=== PATIENT | male | born 1970 | race African-American/Black ===

== ENCOUNTER 2021-04-01 10:15 | Inpatient (IN) | payer OTHER ==
[2021-04-01 11:30] VITALS: BMI 23.3
[2021-04-01] MEDS ORDERED: METHOCARBAMOL 500 MG TABLET PO PRN (12:42)
[2021-04-01] MEDS ORDERED: MAGNESIUM HYDROX 2400MG/30ML ORAL SUSPENSION 30 ML CUP PO PRN (12:42)
[2021-04-01] MEDS ORDERED: ACETAMINOPHEN 325 MG TABLET (FP) PO PRN ×2 (12:42)
[2021-04-01] MEDS ORDERED: NICOTINE 10 MG CARTRIDGE (INHALER) IH PRN (12:42)
[2021-04-01] MEDS ORDERED: IBUPROFEN 400 MG TABLET (FP) PO PRN (12:42)
[2021-04-01] MEDS ORDERED: MAGNESIUM CITRATE 300 ML BOTTLE PO PRN (12:42)
[2021-04-01] MEDS ORDERED: ONDANSETRON *ODT* 4 MG TABLET SL PRN (12:42)
[2021-04-01] MEDS ORDERED: BISMUTH SUBSALICYLATE 524 MG/30 ML PO PRN (12:42)
[2021-04-01] MEDS ORDERED: MAG HYDROX/AL HYDROX/SIMETH 30 ML UNIT-DOSE CUP PO PRN (12:42)
[2021-04-01] MEDS ORDERED: MENTHOL/PHENOL 1 EACH UD MM PRN (12:42)
[2021-04-01] MEDS: NICOTINE 7 MG/24 HOURS TOPICAL PATCH TD SCH (13:42)
[2021-04-01] MEDS: hydrOXYzine PAMOATE 25 MG CAPSULE (FP) PO SCH ×3 (13:43→22:23)
[2021-04-01] MEDS: PRENATAL VITAMINS W/ FOLIC ACID TABLET (FP) PO SCH (13:43)
[2021-04-01] MEDS: levETIRAcetam 250 MG TABLET PO SCH ×2 (14:39→22:23)
[2021-04-01] MEDS: amLODIPine BESYLATE 10 MG TABLET (FP) PO SCH (14:39)
[2021-04-01 16:16] LABS: HEMATOCRIT 33.2 % (35.4-49); HEMOGLOBIN 11.3 GM/dL (11.7-16.9); MCH 35.2 pg (25.7-33.7); MCHC 34.1 g/dl (32.0-35.9); MEAN CELL VOLUME 103.2 fl (80-96); MEAN PLT VOLUME 10.3 fl (7.5-11.1); PLATELET COUNT 110 10^3/uL (134-434); RBC 3.22 M/mm3 (4.00-5.60); RDW 14.9 % (11.9-15.9); WHITE BLOOD COUNT 5.3 K/mm3 (4.0-10.0)
[2021-04-01 16:19] LABS: ALBUMIN 3.5 g/dl (3.4-5.0); BLOOD UREA NITROGEN 9.1 mg/dL (7-18); CALCIUM 8.7 mg/dL (8.5-10.1)
[2021-04-01 16:22] LABS: CREATININE 0.9 mg/dL (0.55-1.3)
[2021-04-01 16:25] LABS: BILIRUBIN,TOTAL 1.2 mg/dL (0.2-1); TOT PROT 7.9 g/dl (6.4-8.2)
[2021-04-01] MEDS ORDERED: PATIENT'S OWN MEDICATION (NON-FORMULARY) (Hydroxyzine Hcl [Hydroxyzine Hcl] 50 MG Tablet) PO SCH (22:00)
[2021-04-01] MEDS: MELATONIN 5 MG TABLETS PO SCH (22:23)
[2021-04-01] MEDS: THIAMINE HCL 100 MG TABLET (FP) PO SCH (22:23)
[2021-04-02] MEDS: hydrOXYzine PAMOATE 25 MG CAPSULE (FP) PO SCH (05:41)
[2021-04-02] MEDS: levETIRAcetam 250 MG TABLET PO SCH ×3 (06:58→22:08)
[2021-04-02] MEDS ORDERED: LORazepam 1 MG TABLET PO PRN (08:52)
[2021-04-02] MEDS ORDERED: POTASSIUM CHLORIDE ORAL LIQUID 20 MEQ/15 ML PO ONE ×2 (10:30→14:30)
[2021-04-02] MEDS: PRENATAL VITAMINS W/ FOLIC ACID TABLET (FP) PO SCH (10:46)
[2021-04-02] MEDS: NICOTINE 7 MG/24 HOURS TOPICAL PATCH TD SCH (10:46)
[2021-04-02] MEDS: amLODIPine BESYLATE 10 MG TABLET (FP) PO SCH (10:46)
[2021-04-02] MEDS: LORazepam 0.5 MG TABLET PO SCH ×3 (10:48→22:09)
[2021-04-02] MEDS: THIAMINE HCL 100 MG TABLET (FP) PO SCH (22:09)
[2021-04-02] MEDS: MELATONIN 5 MG TABLETS PO SCH (22:10)
[2021-04-03] MEDS ORDERED: LORazepam 0.5 MG TABLET PO PRN
[2021-04-03] MEDS: levETIRAcetam 250 MG TABLET PO SCH ×3 (06:09→22:29)
[2021-04-03] MEDS: LORazepam 0.5 MG TABLET PO SCH ×3 (06:13→22:29)
[2021-04-03] MEDS: PRENATAL VITAMINS W/ FOLIC ACID TABLET (FP) PO SCH (10:22)
[2021-04-03] MEDS: amLODIPine BESYLATE 10 MG TABLET (FP) PO SCH (10:22)
[2021-04-03] MEDS: NICOTINE 7 MG/24 HOURS TOPICAL PATCH TD SCH (10:22)
[2021-04-03 12:13] LABS: BILIRUBIN,DIRECT 0.5 mg/dL (0.0-0.2)
[2021-04-03 12:15] LABS: BILIRUBIN,TOTAL 0.7 mg/dL (0.2-1); TOT PROT 6.2 g/dl (6.4-8.2)
[2021-04-03 12:17] LABS: ALBUMIN 2.6 g/dl (3.4-5.0)
[2021-04-03] MEDS: THIAMINE HCL 100 MG TABLET (FP) PO SCH (22:29)
[2021-04-03] MEDS: MELATONIN 5 MG TABLETS PO SCH (22:30)
[2021-04-04] MEDS ORDERED: LORazepam 0.5 MG TABLET PO SCH (05:00)
[2021-04-04] MEDS: levETIRAcetam 250 MG TABLET PO SCH (05:59)
[2021-04-04 06:41] VITALS: BP 138/88; PULSE 70; TEMP 98.8
[2021-04-05] MEDS ORDERED: LORazepam 0.5 MG TABLET PO ONE (05:00)
== END 2021-04-04 09:37 | disposition home or self-care (01) | DRG 775 ==
LOC: YASAS 10:15 → UNDOADMIN 12:31 → Y6N 12:31
PROVIDERS: ADMIT Allergy & Immunology; ATTEND Allergy & Immunology
PROC: HZ2ZZZZ Detoxification Services for Substance Abuse Treatment (ICD-10-PCS; principal; 2021-04-01)
DX: F10.230 Alcohol dependence with withdrawal, uncomplicated (principal); F12.10 Cannabis abuse, uncomplicated; F17.210 Nicotine dependence, cigarettes, uncomplicated; F10.282 Alcohol dependence with alcohol-induced sleep disorder; F10.24 Alcohol dependence with alcohol-induced mood disorder; D51.9 Vitamin B12 deficiency anemia, unspecified; I10 Essential (primary) hypertension; G40.909 Epilepsy, unspecified, not intractable, without status epilepticus
CPT/HCPCS: 36415; 80053; 80076; 82962; 84132; 85027; 86780; C9803; U0003; U0005